=== PATIENT | male | born 1970 | race Caucasian/White ===

== ENCOUNTER 2018-10-27 11:58 | Emergency (ER) | payer OTHER ==
[~2018-10-27] VITALS: Ht 165.1 cm; Wt 69.4 kg
[~2018-10-27 11:58] MED LIST: TRAMADOL HCL50 MG PO
[2018-10-27 12:03] VITALS: Ht 165.1 cm; Wt 69.4 kg
[2018-10-27 13:24] VITALS: BP 120/74
== END 2018-10-27 13:14 | disposition home or self-care (01) ==
LOC: ED 11:58
DX: M17.0 Bilateral primary osteoarthritis of knee (principal)